=== PATIENT | male | born 1955 | race Caucasian/White ===

== ENCOUNTER 2016-12-30 06:31 | Observation (INO) | payer OTHER ==
[2016-12-30] VITALS (19 sets, daily range): BP systolic 115–160; BP diastolic 52–99; PULSE 56–77; RESP 16–26; Ht 172.7 cm; Wt 92.0 kg
[~2016-12-30] VITALS: Ht 172.7 cm; Wt 92.0 kg
[2016-12-30] MEDS ORDERED: LOSA1TAB20 PO (07:41)
[2016-12-30] MEDS ORDERED: ASPI-664 PO (07:42)
[2016-12-30] MEDS ORDERED: GLIM1TAB2 PO (07:42)
[2016-12-30] MEDS ORDERED: METO-429 PO (07:42)
[2016-12-30] MEDS ORDERED: METF-382 PO (07:43)
--- NOTE | 2016-12-30 07:50 | RADRPT ---
PROCEDURE: XR Chest. CLINICAL INDICATION: Chest pain. Preoperative evaluation. TECHNIQUE: Portable single view of the chest COMPARISON: None. FINDINGS: The heart size appears within normal limits. Aortic calcification is seen. No acute infiltrate, pl eural effusion, or overt congestive heart failure is seen. Degenerative change of the spine and rig ht shoulder. IMPRESSION: No definite acute pulmonary disease. Aortic atherosclerosis. RPTAT: HLBE Lourdes Farmer Physician Date Time Electronically viewed and signed by Lourdes Farmer, Physician on 12/30/2016 07:50 LE/
[2016-12-30 08:13] LABS: BASOPHILS % 0.5 % (0.0-2.0); EOSINOPHILS # 0.2 10^3/ul (0.0-0.5); EOSINOPHILS % 2.5 % (0.0-7.0); HEMATOCRIT 40.3 % (42.0-52.0); HEMOGLOBIN 14.1 g/dl (14.0-18.0); LYMPHOCYTES # 1.9 10^3/ul (0.8-2.9); MEAN CORPUSCULAR HEMOGLOBIN 32.4 pg (29.0-33.0); MEAN CORPUSCULAR HGB CONC 34.9 g/dl (32.0-37.0); MEAN CORPUSCULAR VOLUME 92.9 fl (82.0-101.0); MONOCYTE # 0.5 10^3/ul (0.3-0.9); NEUTROPHIL # 4.9 10^3/ul (1.6-7.5); PLATELET COUNT 134 10^3/UL (140-440); RED BLOOD COUNT 4.33 10^6/ul (4.70-6.10); RED CELL DISTRIBUTION WIDTH 13.3 % (11.5-14.5); UNCORRECTED WBC 7.6 10^3/ul (4.8-10.8); WHITE BLOOD COUNT 7.6 10^3/ul (4.8-10.8)
[2016-12-30 08:15] LABS: CONDITION 1
[2016-12-30] MEDS ORDERED: FENTAnyl 50 MCG/ML VIAL ONE (08:23)
[2016-12-30] MEDS ORDERED: MIDAZOLAM 1 MG/ML 2 ML INJ ONE (08:23)
[2016-12-30] MEDS ORDERED: LIDOCAINE 1% (MDV) 20 ML INJ ONE ×2 (08:23→09:58)
[2016-12-30] MEDS ORDERED: IODIXANOL LOCM 100 ML BTL ONE (08:23)
[2016-12-30] MEDS ORDERED: NITROGLYCERIN (IC) 100 MCG/ML INJ ONE (08:23)
[2016-12-30] MEDS ORDERED: VERAPAMIL 5 MG INJ ONE (08:23)
[2016-12-30] MEDS ORDERED: HEPARIN 1000 UNITS/ML 10 ML INJ ONE (08:23)
[2016-12-30 08:28] LABS: INR 1.03; PROTIME 13.5 Sec (12.2-14.2); PT RATIO 1.1
[2016-12-30 08:29] LABS: PARTIAL THROMBOPLASTIN TIME 32.4 Sec (25.0-35.0)
[2016-12-30 08:42] LABS: CALCIUM 10.4 mg/dl (8.4-10.2); CREATININE 1.02 mg/dl (0.61-1.24); POTASSIUM 4.5 mmol/L (3.5-5.1)
[2016-12-30] MEDS ORDERED: SOD CHLORIDE 0.9% 500 ML ONE (09:57)
[2016-12-30] MEDS ORDERED: BIVALIRUDIN 250MG /NS 50 ML 50 ML IVPB ONE (10:15)
[2016-12-30] MEDS ORDERED: ASPIRIN 325 MG TAB ONE (10:52)
[2016-12-30] MEDS ORDERED: TICAGRELOR 90 MG TABLET ONE (10:52)
[2016-12-30] MEDS ORDERED: SOD CHLORIDE 0.9% 1,000 ML IV SCH (11:11)
[2016-12-30] MEDS ORDERED: ACETAMINOPHEN 325 MG TAB PO PRN (11:30)
[2016-12-30] MEDS ORDERED: morphine 2 MG INJ IV PRN (11:30)
[2016-12-30] MEDS ORDERED: ZOLPIDEM 5 MG TAB PO PRN (11:30)
[2016-12-30] MEDS ORDERED: OXYCODONE/ACETAMINOPHEN (5/325) TAB PO PRN (11:30)
[2016-12-30] MEDS ORDERED: AL HYDROX/MG HYDROX/SIMETH 30 ML CUP PO PRN (11:30)
[2016-12-30] MEDS ORDERED: ONDANSETRON 4 MG INJ IV PRN (11:30)
[2016-12-30] MEDS: INSULIN ASPART [NOVOLOG] 3 ML PEN SC SCH ×3 (12:00→21:00)
--- NOTE | 2016-12-30 13:55 | CARRPT ---
DATE OF PROCEDURE: 12/30/2016 TYPE OF PROCEDURE: 1. Left heart catheterization. 2. Coronary angiography. 3. Percutaneous transluminal coronary angioplasty with placement of drug-eluting stents x3 to right coronary artery, 2.25 x 14 mm and 2.25 x 18 mm to mid right coronary artery, 3.0 x 22 mm to ostial right coronary artery. 4. Intravascular ultrasound of right coronary artery. ATTENDING PHYSICIAN: Maris Garcia MD REFERRING PHYSICIAN: Dr. Savanna Lr and Dr. Fernandez INDICATION: Angina refractory to medical therapy. TYPE OF ANESTHESIA: Conscious and local. BRIEF HISTORY: Mr. Juarez is a 61-year-old male with history of hypertension, dyslipidemia, and diabetes mellitus, ongoing tobacco usage who initially had complaints of chest pain. The patient co nsented to medical therapy, chest pain consistent with angina, brought to the cardiac laboratory technical specialist [place] to assess for the possibility of significant obstructive coronary artery disease lending to symp toms of chest pain and subsequent presentation to the catheterization lab. DESCRIPTION OF PROCEDURE: After informed consent was obtained [facility] his right radial area and right groin were prepped and draped in usual sterile fashion. Initial ly access was gained into the right radial area and a 6-Angolan arterial sheath was placed. At this time, we passed the wire and noted a stenosis in the patient's right subclavian. We did angiographi c injections of the subclavian showing what appeared to be a complete occlusion. The wire was able to pass easily through, and a catheter was able to be passed very simply through, and we were able t o take pictures of the left. Subsequently, at this time, the JL was removed and we attempted to pas s a JR for patient's right, but this proved unsuccessful. We unsuccessful, and I would like t o change access sites due to stenosis in the right subclavian. Subsequently used the modified Seldi nger technique. The patient's right femoral artery was cannulated and a 6-Angolan arterial sheath wa s placed. It should be noted that the patient had been given 5000 units of heparin, 2.5 verapamil a nd 200 mcg of IC nitroglycerin after radial access had initially been gained. Subsequently, at this time, after getting femoral access, a JR4 was used to cannulate the right coronary arterial ostium. With contrast injection, multiple views of the right coronary arterial system were obtained. JL4 was initially used to cross the LV and left ventricular end-diastolic pressure was measured, pulled back across the aortic valve to assess for significant gradient which there was not and removed. Hopkins bsequently, at this time, given the findings of significant obstructive lesion in the right coronary artery, we moved directly into an interventional procedure. The patient had a JR4 with side holes given ostial lesion, placed into the ostium, and a 0.014 balance middle weight guidewire was easily passed with some difficulty to pass the ostial lesion. Subsequently, at this time, the ostial lesio n was treated initially with a 2.0 balloon x 12 mm, it was upsized to a 3.0 x 12 mm balloon. Subseq uently, at this time, after inflations with each of these up to 20 atmospheres, the balloon was juan jose adriana and we elected to perform intravascular ultrasound to assess the size of this vessel. Intravasc ular ultrasound probe was then passed into the proximal portion of the vessel and ____ diameter, wer e assessed at the proximal portion of the vessel in the ostium. Intravascular ultrasound was remove d, and at this time with improved left flow we were able to discern mid lesions up to 80 to 90%, sub sequently the lesion was treated with a 2.0 x 12 mm balloon. The balloon was removed and the lesion was stented with a 2.25 x 14 mm drug-eluting stent deployed at 14 atmospheres, post dilated with a stent delivery system up to 16 atmospheres. Stent delivery system was removed and a followup angiog joyce obtained revealing excellent result, deployment of the stent, FARIDA 3 flow throughout the vessel, no signs of complication including perforation or dissection. Subsequently, at this time, the osti um of the vessel was then stented with a 3.0 x 22 mm balloon, inflated to 22 atmospheres x2. The ba lloon was then placed across the ostium and used for the ostium at 20 atmospheres and removed. Subs equently, at this time a followup angiogram was obtained revealing excellent result deployment of st ent, but now with improved flow it can also discern a second mid lesion just proximal to the previou sly placed stent. Subsequently, this lesion was directly stented with a 2.25 x 18 mm drug-eluting s tent deployed at 14 atmospheres and post dilated with the stent delivery system up to 16 atmospheres . Stent delivery balloon was then pushed in overlapped area and inflated to 16 atmospheres x2. The stent delivery balloon was removed. Followup angiogram was obtained revealing excellent result wit h deployment of both these stents with FARIDA 3 flow throughout the vessel, and no signs of comp lication including perforation or dissection. Subsequently, at this time, the delivery balloon was removed and we decided to further flare the ostium, so a 3.75 x 14 mm balloon was then deployed acro ss the ostium and with a 45 mm into the aorta and further post dilations up to 18 atmospheres were made to further flare the ostium. Subsequently, this balloon was removed. The catheter was pl aced back in the ostium. Followup angiograms were obtained, and the patient was given 200 mcg of IC nitroglycerin and further followup angiogram was obtained revealing excellent result, deployment of all 3 stents, FARIDA 3 flow throughout the vessel, no signs of complication including perforation or dissection. Subsequently, at this time. This completed the procedure. The patient's catheters wer e removed. The final angiographic images of the right femoral arterial insertion site were then obt ained, and subsequently a 6-Angolan Perclose device was used to the vessel. The radial sheath TR band was applied. This completed the procedure. There were no noted complications. FINDINGS: 1. Coronary angiography: Left main 4 mm with an apparent ostial stenosis that appears to be eccent chris-appearing calcification and likely stenosis up to approximately 40% with good axillary flow and no dampening. The circumflex proximally is a 3 mm vessel and has an ostial 40% stenosis. The remai nder of the circumflex is free of significant focal stenoses, a mid branching obtuse marginal 3 mm with no significant focal stenoses. AV groove is free of significant focal stenoses. Th e LAD proximally is a 3 mm vessel and its mid portion has a 20% stenosis making the LAD free of sign ificant focal stenoses, goes around the apex, it is a small-caliber vessel likely diffusely diseased . Proximal branching diagonal sub 2 mm vessel with no significant focal stenoses. The patient's ri ght coronary artery proximally is a likely 3.5 mm vessel and has an ostial 90% stenosis with calcifi cation. Then with improved flow, we were able to see a 80% mid stenosis tandem x2, a dominant vesse l and gives off a small PDA sub 2 mm vessel and a 2 mm posterolateral branch with no significant foc al stenoses. 2. PTCA and stent placement: Prior to PTCA and stent placement, the patient had an ostial right co ronary stenosis 90% and 2 mid body stenoses 80% each post PTCA and stent placement. The patient had no residual stenosis. FARIDA 3 flow throughout the vessel and no signs of complication including per foration or dissection. TOTAL FLUOROSCOPY TIME: 26 minutes. TOTAL CONTRAST: 100 mL. IMPRESSION: Single-vessel obstructive coronary artery disease involving the high-grade ostial right coronary stenosis and mid body right coronary stenosis status post successful percutaneous translum inal coronary angioplasty and stent placement x3 with drug-eluting stents. RECOMMENDATIONS: In light of procedure findings: 1. Maintain patient on Brilinta 90 mg 1 tab p.o. b.i.d. times at least 1 year. 2. Aspirin 81 mg 1 tab p.o. daily indefinitely. 3. Maximize medical management. 4. Aggressive risk factor reduction. 5. The patient will be admitted to the ICU for post-intervention observation and continued manageme nt of symptoms with probable discharge the following day. Dictated By: MARIS MAK/NTS Conf#: [id number] DID#: [id number] CC: SAVANNA LR MD; TERESSA FERNANDEZ MD;*EndCC*
--- NOTE | 2016-12-30 20:50 | RADRPT ---
Vent Rate: 60 bpm RR Interval: 0 msec HI Interval: 136 msec QRS Duration: 86 msec QT Interval: 414 msec QTC Interval: 414 msec P-R-T [place]: 61 - 66 - 70 degrees Normal sinus rhythm Nonspecific T wave abnormality Abnormal ECG Electronically Signed By: Chino Whiteside [id number]
--- NOTE | 2016-12-30 20:52 | RADRPT ---
Vent Rate: 55 bpm RR Interval: 0 msec RI Interval: 146 msec QRS Duration: 86 msec QT Interval: 432 msec QTC Interval: 413 msec P-R-T [place]: 35 - 65 - 73 degrees Sinus bradycardia T wave abnormality, consider lateral ischemia Abnormal ECG Electronically Signed By: Chino Whiteside [id number]
[2016-12-30] MEDS: TICAGRELOR 90 MG TABLET PO SCH (21:31)
[2016-12-31] VITALS (15 sets, daily range): BP systolic 106–163; BP diastolic 48–97; PULSE 68–89; RESP 15–30
[2016-12-31 06:34] LABS: BASOPHILS % 0.4 % (0.0-2.0); EOSINOPHILS # 0.1 10^3/ul (0.0-0.5); EOSINOPHILS % 2.3 % (0.0-7.0); HEMATOCRIT 36.8 % (42.0-52.0); HEMOGLOBIN 12.7 g/dl (14.0-18.0); LYMPHOCYTES # 1.7 10^3/ul (0.8-2.9); LYMPHOCYTES % 25.6 % (15.0-51.0); MEAN CORPUSCULAR HEMOGLOBIN 32.2 pg (29.0-33.0); MEAN CORPUSCULAR HGB CONC 34.5 g/dl (32.0-37.0); MEAN CORPUSCULAR VOLUME 93.3 fl (82.0-101.0); MEAN PLATELET VOLUME 8.9 fl (7.4-10.4); MONOCYTE # 0.5 10^3/ul (0.3-0.9); MONOCYTES % 7.8 % (0.0-11.0); NEUTROPHIL # 4.1 10^3/ul (1.6-7.5); NEUTROPHILS % 63.9 % (39.0-77.0); PLATELET COUNT 108 10^3/UL (140-440); RED BLOOD COUNT 3.94 10^6/ul (4.70-6.10); RED CELL DISTRIBUTION WIDTH 13.5 % (11.5-14.5); UNCORRECTED WBC 6.5 10^3/ul (4.8-10.8); WHITE BLOOD COUNT 6.5 10^3/ul (4.8-10.8)
[2016-12-31 06:50] LABS: POTASSIUM 4.3 mmol/L (3.5-5.1)
[2016-12-31 06:52] LABS: CONDITION 1
[2016-12-31 06:53] LABS: CREATININE 0.97 mg/dl (0.61-1.24)
[2016-12-31 06:54] LABS: CALCIUM 9.8 mg/dl (8.4-10.2)
[2016-12-31] MEDS: INSULIN ASPART [NOVOLOG] 3 ML PEN SC SCH ×2 (07:58→13:10)
[2016-12-31] MEDS: TICAGRELOR 90 MG TABLET PO SCH (08:51)
[2016-12-31] MEDS ORDERED: ASPIRIN (EC) 81 MG TAB PO SCH (09:00)
--- NOTE | 2016-12-31 10:58 | CONS ---
Date/Time of Note Date/Time of Note DATE: 12/31/16 TIME: 10:48 Assessment/Plan Assessment/Plan Chief Complaint/Hosp Course Imp: 1.Post-op s/p PTCA/stent x 3 to RCA with REY day#1 2.Angina-refractory to medical therapy 3.HTN 4.HL 5.DM 6. ONgoing Tobacco usage Recc: -Continue brilinta/asa and give prescripstions -REsume baseline BB/losaratan/HCTZ -start statin and give prescription -ambulate patient and if no sig chest pain or groing pain/bleeding then ok for d /c with outpatient cardiology f/u 2 weeks. Problems: Consultation Date/Type/Reason Admit Date/Time Dec 30, 2016 at 20:56 Initial Consult Date 12/31/16 Type of Consultation: Cardiology Reason for Consultation s/p PTCA/stent Referring Provider: TERESSA SANCHEZ MD Exam/Review of Systems Vital Signs Vitals Vital Signs Date Time Temp Pulse Resp B/P Pulse Ox O2 Delivery O2 Flow Rate FiO2 12/31/16 10:00 73 19 149/77 96 Room Air 12/31/16 08:00 98.7 Intake and Output 12/30/16 12/30/16 12/31/16 15:00 23:00 07:00 Intake Total 270 ml 1112 ml 300 ml Output Total 0 ml 800 ml 300 ml Balance 270 ml 312 ml 0 ml Exam Review of Systems: CONSTITUTIONAL: No fevers, chills. PULMONARY: No sob CARDIOVASCULAR: No chest pain/palpitations GASTROINTESTINAL: No nausea/vomiting. GENITOURINARY: No hematuria/dysuria. MUSCULOSKELETAL: No myagias/arthalgias. PSYCHIATRIC: The patient denies depression. NEUROLOGIC: No weakness Constitutional: alert, oriented Psych: no complaints Head: normocephalic ENMT: mucosa pink and moist Neck: jvd (8 cm water), supple Respiratory: clear to auscultation Cardiovascular: regular rate and rhythm Gastrointestinal: non-tender, soft Genitourinary - Male: other (R groin no sig eccymosis/swelling/no bleeding) Musculoskeletal: muscle tone (normal) Extremities: edema (none), other (R wrist no bledding/swelling/strong palpable pulse) Neurological: other Results Result Diagram: 12/31/16 0500 2/17/17 0500 Results 24 hrs Laboratory Tests Test 12/30/16 13:30 12/30/16 17:16 12/30/16 21:28 12/31/16 05:00 Bedside Glucose 143 118 172 Anion Gap 17 H Basophils # 0.0 Basophils % 0.4 Blood Urea Nitrogen 25 H Calcium Level 9.8 Carbon Dioxide Level 20 L Chloride Level 108 Creatinine 0.97 Eosinophils # 0.1 Eosinophils % 2.3 Glucose Level 170 Hematocrit 36.8 L Hemoglobin 12.7 L Lymphocytes # 1.7 Lymphocytes % 25.6 Mean Corpuscular Hemoglobin 32.2 Mean Corpuscular Hemoglobin Concent 34.5 Mean Corpuscular Volume 93.3 Mean Platelet Volume 8.9 Monocytes # 0.5 Monocytes % 7.8 Neutrophils # 4.1 Neutrophils % 63.9 Nucleated Red Blood Cells # 0.0 Nucleated Red Blood Cells % 0.0 Platelet Count 108 L Potassium Level 4.3 Red Blood Count 3.94 L Red Cell Distribution Width 13.5 Sodium Level 141 White Blood Count 6.5 Test 12/31/16 07:54 Bedside Glucose 205 Medications Medications Current Medications Aspirin (Halfprin) 81 mg DAILY PO Last administered on 12/31/16 08:50; Admin Dose 81 MG; Start 12/31/16 at 09:00 Ticagrelor (Brilinta) 90 mg BID PO Last administered on 12/31/16 08:51; Admin Dose 90 MG; Start 12/30/16 at 21:00 Acetaminophen (Tylenol Tab) 650 mg Q4H PRN PO NON-CARDIAC PAIN LEVEL 1-3; Start 12/30/16 at 11:30 Oxycodone/ Acetaminophen (Percocet (5/ 325)) 1 tab Q4H PRN PO REPORTED NON- CARDIAC PAIN 4-7; Start 12/30/16 at 11:30 Morphine Sulfate (morphine) 1 mg Q1H PRN IV PAIN NOT RELIEVED BY OTHERS; Start 12/30/16 at 11:30 Al Hydrox/Mg Hydrox/Simethicone (Mag-Al Plus) 30 ml Q4H PRN PO GASTROINTESTINAL UPSET; Start 12/30/16 at 11:30 Ondansetron HCl (Zofran Inj) 4 mg Q4H PRN IV NAUSEA AND/OR VOMITING; Start at 11:30 Metoprolol Tartrate (Lopressor) 50 mg BID PO ; Start 12/31/16 at 11:00; Status UNV Miscellaneous Information 1 tab DAILY PO ; Start 12/31/16 at 11:00; Status UNV MARIS DOCKERY Dec 31, 2016 10:57
[2016-12-31] MEDS ORDERED: DEXTROSE 50% 50 ML SYRINGE IV PRN ×2 (11:00)
[2016-12-31] MEDS ORDERED: GLUCOSE GEL 15 GRAM TUBE BUCCAL PRN (11:00)
[2016-12-31] MEDS ORDERED: GLUCAGON 1 MG INJ IM PRN (11:00)
[2016-12-31] MEDS ORDERED: GLUCOSE GEL 15 GRAM TUBE PO PRN ×2 (11:00)
[2016-12-31] MEDS ORDERED: METOPROLOL 50 MG TAB PO SCH (11:00)
[2016-12-31] MEDS ORDERED: HYDROCHLOROTHIAZIDE 25 MG TAB PO SCH (11:30)
[2016-12-31] MEDS ORDERED: LOSARTAN 50 MG TAB PO SCH (11:30)
[2016-12-31 11:48] LABS: CHOL/HDL RATIO 4.6 RATIO
--- NOTE | 2016-12-31 13:03 | PN ---
Date/Time of Note Date/Time of Note DATE: 12/31/16 TIME: 12:52 Assessment/Plan VTE Prophylaxis VTE Prophylaxis Intervention: SCD's Lines/Catheters IV Catheter Type (from Nrsg): Peripheral IV Assessment/Plan Assessment/Plan 61 yo male with; 1. S/p Elective PTCA/stent x 3 to RCA with REY, POD#1 No Angina or chest pain this AM No arrhythmias and on RA, per Cardiology Ok to discharge home today with outpatient follow up in 2 weeks Continue brilinta/asa and prescriptions given by Dr Garcia 2. Hypertension: continue home meds. Resuming baseline BB/losaratan/HCTZ 3. Hyperlipidemia: continue statins. 4. Diabetes Mellitus : continue home meds 5. Ongoing Tobacco usage: needs to quit Prophylaxis: tolerating po, ambulating Disposition: d/c home with PCP and Cardiology in 1 to 2 weeks Subjective 24 Hr Interval Summary Free Text/Dictation Patient doing Ok Appreciate evaluation and recommendations from Dr Garcia Patient to be ambulated and if no sxs Ok to d/c home with outpatient cardiology and PCP follow up Exam/Review of Systems Vital Signs Vitals Vital Signs Date Time Temp Pulse Resp B/P Pulse Ox O2 Delivery O2 Flow Rate FiO2 12/31/16 11:00 76 21 134/65 97 Room Air 12/31/16 08:00 98.7 Intake and Output 12/30/16 12/30/16 12/31/16 15:00 23:00 07:00 Intake Total 270 ml 1112 ml 300 ml Output Total 0 ml 800 ml 300 ml Balance 270 ml 312 ml 0 ml Exam Constitutional: alert, oriented, well developed Respiratory: clear to auscultation, normal air movement Cardiovascular: nl pulses, regular rate and rhythm Gastrointestinal: non-tender, soft Musculoskeletal: nl extremities to inspection Extremities: normal pulses, other (no edema, clubbing or cyanosis ) Neurological: MACHINE SHOP INSPECTOR II-XII intact, nl mental status, nl speech, nl strength Results Result Diagram: 12/31/16 0500 12/31/16 0500 Results 24 hrs Laboratory Tests Test 12/30/16 13:30 12/30/16 17:16 12/30/16 21:28 12/31/16 05:00 Bedside Glucose 143 118 172 Anion Gap 17 H Basophils # 0.0 Basophils % 0.4 Blood Urea Nitrogen 25 H Calcium Level 9.8 Carbon Dioxide Level 20 L Chloride Level 108 Creatinine 0.97 Eosinophils # 0.1 Eosinophils % 2.3 Glucose Level 170 Hematocrit 36.8 L Hemoglobin 12.7 L Lymphocytes # 1.7 Lymphocytes % 25.6 Mean Corpuscular Hemoglobin 32.2 Mean Corpuscular Hemoglobin Concent 34.5 Mean Corpuscular Volume 93.3 Mean Platelet Volume 8.9 Monocytes # 0.5 Monocytes % 7.8 Neutrophils # 4.1 Neutrophils % 63.9 Nucleated Red Blood Cells # 0.0 Nucleated Red Blood Cells % 0.0 Platelet Count 108 L Potassium Level 4.3 Red Blood Count 3.94 L Red Cell Distribution Width 13.5 Sodium Level 141 White Blood Count 6.5 Test 12/31/16 07:54 12/31/16 09:00 Bedside Glucose 205 Cholesterol Level 167 Cholesterol/HDL Ratio 4.6 HDL Cholesterol 36 LDL Cholesterol, Calculated 81 Triglycerides Level 250 H Troponin I 0.141 *H Medications Medications Current Medications Aspirin (Halfprin) 81 mg DAILY PO Last administered on 12/31/16 08:50; Admin Dose 81 MG; Start 12/31/16 at 09:00 Ticagrelor (Brilinta) 90 mg BID PO Last administered on 12/31/16 08:51; Admin Dose 90 MG; Start 12/30/16 at 21:00 Acetaminophen (Tylenol Tab) 650 mg Q4H PRN PO NON-CARDIAC PAIN LEVEL 1-3; Start 12/30/16 at 11:30 Oxycodone/ Acetaminophen (Percocet (5/ 325)) 1 tab Q4H PRN PO REPORTED NON- CARDIAC PAIN 4-7; Start 12/30/16 at 11:30 Morphine Sulfate (morphine) 1 mg Q1H PRN IV PAIN NOT RELIEVED BY OTHERS; Start 12/30/16 at 11:30 Al Hydrox/Mg Hydrox/Simethicone (Mag-Al Plus) 30 ml Q4H PRN PO GASTROINTESTINAL UPSET; Start 12/30/16 at 11:30 Ondansetron HCl (Zofran Inj) 4 mg Q4H PRN IV NAUSEA AND/OR VOMITING; Start at 11:30 Metoprolol Tartrate (Lopressor) 50 mg BID PO ; Start 12/31/16 at 11:00 Losartan Potassium (Cozaar) 100 mg DAILY PO ; Start 12/31/16 at 11:30 Miscellaneous Information 1 ea NOTE XX ; Start 12/31/16 at 11:00 Glucose (Glutose) 15 gm Q15M PRN PO DECREASED GLUCOSE; Start 12/31/16 at 11:00 Glucose (Glutose) 22.5 gm Q15M PRN PO DECREASED GLUCOSE; Start 12/31/16 at 11: 00 Dextrose (D50w Syringe) 25 ml Q15M PRN IV DECREASED GLUCOSE; Start 12/31/16 at 11:00 Dextrose (D50w Syringe) 50 ml Q15M PRN IV DECREASED GLUCOSE; Start 12/31/16 at 11:00 Glucagon (Glucagen) 1 mg Q15M PRN IM DECREASED GLUCOSE; Start 12/31/16 at 11:00 Glucose (Glutose) 15 gm Q15M PRN BUCCAL DECREASED GLUCOSE; Start 12/31/16 at 11 :00 Hydrochlorothiazide (Hydrochlorothiazide) 25 mg DAILY PO ; Start 12/31/16 at 11: 30 CYNDEE ARNOLD Dec 31, 2016 13:03
--- NOTE | 2016-12-31 13:05 | PDOCDIS ---
Discharge Instructions CONDITION Patient Condition: Stable HOME CARE INSTRUCTIONS: Diet Instructions: Low Fat /CholesterolSpecial Diet: Carbohydrate controlled diet ACTIVITY: Activity Restrictions: No Restrictions FOLLOW UP/APPOINTMENTS Appointments Follow up with PCP within 1 to 2 weeks Follow up with Dr Garcia in 2 weeks OTHER ORDERS: Other Orders: Restart your metformin on Tuesday 01/02 CYNDEE ARNOLD Dec 31, 2016 13:05
[2016-12-31] MEDS ORDERED: ASPI-664 PO (13:08)
[2016-12-31] MEDS ORDERED: ATOR20TA38 PO (13:08)
[2016-12-31] MEDS ORDERED: TICA90TA PO (13:08)
--- NOTE | 2016-12-31 13:34 | RADRPT ---
Vent Rate: 80 bpm RR Interval: 0 msec DC Interval: 128 msec QRS Duration: 84 msec QT Interval: 388 msec QTC Interval: 447 msec P-R-T [place]: 66 - 67 - 77 degrees Normal sinus rhythm Nonspecific ST abnormality Abnormal ECG Electronically Signed By: Chino Whiteside [id number]
[2017-01-01] MEDS ORDERED: GLIMEPIRIDE 2 MG TAB PO SCH (07:35)
== END 2016-12-31 14:15 | disposition home or self-care (01) ==
LOC: SDS 06:31 → ICU 11:45 → SDS 11:46 → ICU 20:56 → INTOOBSV 20:56
PROVIDERS: ADMIT Internal Medicine; ATTEND Internal Medicine
DX: I25.119 Atherosclerotic heart disease of native coronary artery with unspecified angina pectoris (principal); I10 Essential (primary) hypertension; E78.5 Hyperlipidemia, unspecified; E11.9 Type 2 diabetes mellitus without complications
CPT/HCPCS: 71010; 80048; 80061; 82465; 82962; 84478; 84484; 85025; 85610; 85730; 87081; 92978; 93005; 93458; 96372; 99217; C1725; C1760; C1769; C1874; C1887; C1894; C9600; G0378; J0583; J1644; J2250; J3010; J7040; Q9967